=== PATIENT | male | born 1980 | race Asian ===

== ENCOUNTER 2025-08-24 07:06 | Outpatient (CLI) | payer OTHER, SELFPAY ==
--- NOTE | 2025-08-24 08:23 | P.ANES_ITS ---
Anesthesia Charges Start Date/Time Anesthesia Start Date: 08/24/25 Anesthesia Start Time: 07:58 Stop Date/Time Anesthesia Stop Date: 08/24/25 Anesthesia Stop Time: 08:23 Coding CPT Codes CPT Codes: CASSI LWR INTST NDMI NOS - [id number] ([id number]) P1 - NORMAL HEALTHY PATIENT, QK - GAUGE MAKER 2-4 CNCRNT ANES PROC, QX - DIRECTOR AUDIENCE MARKETING SVC W/ MED DIRECTION
--- NOTE | 2025-08-24 08:23 | W.ANESCHARGE ---
Anesthesia Charges Start Date/Time Anesthesia Start Date: 08/24/25 Anesthesia Start Time: 07:58 Stop Date/Time Anesthesia Stop Date: 08/24/25 Anesthesia Stop Time: 08:23 Coding CPT Codes CPT Codes: CASSI LWR INTST NDDC NOS - [id number] ([id number]) P1 - NORMAL HEALTHY PATIENT, QK - CLUSTER BORE OPERATOR 2-4 CNCRNT ANES PROC, QX - HEAD OF PRODUCT SVC W/ MED DIRECTION
--- NOTE | 2025-08-24 09:11 | P.ANES_ITS ---
Anesthesia Charges Start Date/Time Anesthesia Start Date: 08/24/25 Anesthesia Start Time: 07:58 Stop Date/Time Anesthesia Stop Date: 08/24/25 Anesthesia Stop Time: 08:23 Coding CPT Codes CPT Codes: CASSI LWR INTST NDWI NOS - [id number] ([id number]) P1 - NORMAL HEALTHY PATIENT, QK - PLATE MOLDER 2-4 CNCRNT ANES PROC, QX - REGIONAL SALES DIRECTOR SVC W/ MED DIRECTION
--- NOTE | 2025-08-24 09:11 | W.ANESCHARGE ---
Anesthesia Charges Start Date/Time Anesthesia Start Date: 08/24/25 Anesthesia Start Time: 07:58 Stop Date/Time Anesthesia Stop Date: 08/24/25 Anesthesia Stop Time: 08:23 Coding CPT Codes CPT Codes: CASSI LWR INTST NDNY NOS - [id number] ([id number]) P1 - NORMAL HEALTHY PATIENT, QK - BRIM STIFFENER 2-4 CNCRNT ANES PROC, QX - CHIP WASHER SVC W/ MED DIRECTION
== END 2025-08-24 07:07 | disposition home or self-care (01) ==
LOC: OP CLINIC 07:12
PROVIDERS: PCP Family Medicine; Visit Provider Internal Medicine
DX: Z12.11 Encounter for screening for malignant neoplasm of colon (principal); D12.5 Benign neoplasm of sigmoid colon
CPT/HCPCS: 00811; 00812; 45380; J2704